=== PATIENT | male | born 1995 | race Caucasian/White ===

== ENCOUNTER 2018-10-06 03:49 | Emergency (ER) | payer OTHER ==
[~2018-10-06] VITALS: Ht 175.3 cm; Wt 74.8 kg
[~2018-10-06 03:49] MED LIST: OXYACE5T PO; RXOXYACE PO
== END 2018-10-06 06:41 | disposition home or self-care (01) ==
LOC: ER 03:49
DX: R07.81 Pleurodynia (principal)
CPT/HCPCS: 71046; 93005; 93010; 96372; 99284-25; J1885

== ENCOUNTER 2019-07-18 06:18 | Day surgery (SDC) | payer OTHER, SELFPAY ==
[~2019-07-18] VITALS: Ht 177.8 cm; Wt 78.3 kg
--- NOTE | 2019-07-18 10:55 | NUR ---
07/18/19 1055 RICK VASQUEZ LMA REMOVED W/O DIFFICULTY, PATIENT REPORTS PAIN AT 7/10- WILL MEDICATE PER MDA ORDER. DENIES NAUSEA. FOOT COOL, PULSES PRESENT. ABLE TO WIGGLE TOES, NUMBNESS/TINGLING PRESENT D/T BLOCK. REPORT GIVEN TO ABDIRIZAK GOMEZ.
--- NOTE | 2019-07-18 12:20 | NUR ---
07/18/19 1220 RICK VASQUEZ PATIENT UP INTO CHAIR W/O DIFFICULTY. PAIN REMAINS AT 6/10. PATIENT SLEEPING BETWEEN CARES, O2 SATS DIPPING TO 89% WHILE ASLEEP. O2 REAPPLIED IN PHASE 2, ALLOWING PATIENT TO REST AT THIS TIME WITH MOTHER AT CHAIRSIDE. PATIENT TOLERATING WATER, DECLINES ANYTHING TO EAT FOR NOW. PILLOW UNDER ANKLE PER SURGEONS INSTRUCTIONS, POLAR CARE IN PLACE AND RUNNING.
== END 2019-07-18 13:31 | disposition home or self-care (01) ==
LOC: ORSCSDS 06:18
PROVIDERS: Orthopaedic Surgery
PROC: 0MRN47Z Replacement of Right Knee Bursa and Ligament with Autologous Tissue Substitute, Percutaneous Endoscopic Approach (ICD-10-PCS; principal; 2019-07-18 07:30)
PROC: 0SBC4ZZ Excision of Right Knee Joint, Percutaneous Endoscopic Approach (ICD-10-PCS; principal; 2019-07-18 07:30)
PROC: 0MQN0ZZ Repair Right Knee Bursa and Ligament, Open Approach (ICD-10-PCS; principal; 2019-07-18 07:30)
DX: S83.511A Sprain of anterior cruciate ligament of right knee, initial encounter (principal); S83.241A Other tear of medial meniscus, current injury, right knee, initial encounter; S83.401A Sprain of unspecified collateral ligament of right knee, initial encounter
CPT/HCPCS: A9270-GY; C1713; J0171; J0330; J0690; J1100; J1170; J1200; J1885; J2250; J2370; J2405; J2704; J2795; J3010; J7120